=== PATIENT | female | born 1995 | race Two or more races ===

== ENCOUNTER 2025-01-28 05:21 | Day surgery (SDC) | payer OTHER ==
[2025-01-24 11:44] VITALS: BMI 27.4
[2025-01-28] MEDS ORDERED: oxyCODONE HCL 5 MG TABLET PO PRN (07:37)
[2025-01-28] MEDS ORDERED: ACETAMINOPHEN 325 MG TABLET (FP) PO PRN (07:37)
[2025-01-28] MEDS ORDERED: IBUPROFEN 400 MG TABLET (FP) PO PRN (07:37)
[2025-01-28] MEDS ORDERED: ACETAMINOPHEN INJECTION 100 ML ONE (08:27)
[2025-01-28] MEDS ORDERED: LIDOCAINE HCL/PF 2% SDV 5ML VIAL ONE (08:31)
[2025-01-28] MEDS ORDERED: KETOROLAC TROMETHAMINE 30 MG/1 ML VIAL ONE (08:31)
[2025-01-28] MEDS ORDERED: ONDANSETRON 4 MG/2 ML VIAL ONE (08:31)
[2025-01-28] MEDS ORDERED: DEXAMETHASONE SOD PHOSPHATE 4 MG/1 ML VIAL ONE (08:31)
[2025-01-28] MEDS ORDERED: SEVOFLURANE 250 ML BTL ONE (08:33)
[2025-01-28] MEDS ORDERED: PROPOFOL 20 ML ONE ×2 (10:41→10:52)
[2025-01-28] MEDS ORDERED: MIDAZOLAM HCL 2 MG/2 ML SINGLE DOSE VIAL ONE (10:42)
[2025-01-28] MEDS: LACTATED RINGERS SOLUTION 1,000 ML IV SCH (11:50)
[2025-01-28] MEDS ORDERED: PROMETHAZINE HCL 25 MG/1 ML VIAL ONE (14:08)
[2025-01-28] MEDS ORDERED: oxyCODONE HCL 5 MG TABLET ONE (14:08)
[2025-01-28] MEDS: PROMETHAZINE HCL 25 MG/1 ML VIAL IVPB PRN (14:19)
[2025-01-28 14:27] VITALS: RESP 20; TEMP 97.6
[2025-01-28 15:44] VITALS: BP 128/74; PULSE 70
== END 2025-01-28 15:20 | disposition home or self-care (01) ==
LOC: JASU-SURG 05:21
PROVIDERS: ATTEND Obstetrics & Gynecology
PROC: 0UBC8ZZ Excision of Cervix, Via Natural or Artificial Opening Endoscopic (ICD-10-PCS; principal; 2025-01-28 10:30)
DX: N84.1 Polyp of cervix uteri (principal)
CPT/HCPCS: 81025; 88305-TC; 94760; J0131